=== PATIENT | male | born 1960 | race Caucasian/White ===

== ENCOUNTER 2022-01-28 04:04 | Emergency (ER) | payer OTHER ==
--- OUTSIDE RECORDS SUMMARY | 2022-01-28 04:08 | XMS REPORT | Continuity of Care Document ---
:1960 Author Organization [facility] t Address [address] [place] [address] Care Team Providers Name Role Phone Emanuel Jiménez MD Primary Care Physician Devan HERNANDEZ Attending Clinician DEVAN Attending Clinician Unavailable Mynor Olsen DO Attending Clinician Doctor Unassigned, Name Attending Clinician Unavailable Candi LEWIS Attending Clinician Unavailable Skyler ZELAYA Attending Clinician Matt WALKER Attending Clinician Unavailable Lab, Fam Pob I Attending Clinician Unavailable SKYLER Attending Clinician Unavailable Candi Lewis Attending Clinician Payers Payer Name Policy Type Policy Number Effective Date Expiration Date S ource Problems Condition Condition Condition Status Onset Resolution Last Treating Co mments Source Name Details Category Date Date Treatment Clinician Date No known No known Disease Unive rs active active ity of problems problems [facility] [place] Allergies, Adverse Reactions, Alerts Allergy Allergy Status Severity Reaction(s) Onset Inactive Treating Comm ents Source Name Type Date Date Clinician Erythrom Propensi Active Rash 2018-0 Univer s ycin ty to 3-15 ity of adverse 00:00: [place] reaction [facility] s Branch ERYTHROM DRUG Active Rash 2019-0 Univers YCIN 3-15 ity of 00:00: [place] [address] Medical Branch Social History Social Habit Start Date Stop Date Quantity Comments Source History SDOH University o f Alcohol Frequency [place] [facility] History SDOH University o f Alcohol Std [place] [facility] Drinks [facility] History SDOH University o f Alcohol Binge [place] [facility] Exposure to Not sure University of SARS-CoV-2 [place] [facility] (event) [facility] Alcohol intake 2020-11-26 2020-11-26 Current drinker Unive rsity of 00:00:00 00:00:00 of alcohol [place] [facility] (finding[facility] Tobacco Comment 2018-11-12 2018-11-12 x 52y Universit y of 00:00:00 00:00:00 [facility] Alcohol Comment 2018-11-12 2018-11-12 occasional Universit y of 00:00:00 00:00:00 [facility] Tobacco use and 2018-11-12 2018-11-12 Current user Univers ity of exposure 00:00:00 00:00:00 [facility] History of 1986-11-12 Snuff User University of tobacco use 00:00:00 [facility] Sex Ass[birth year] At [birth year] Universit y of 00:00:00 00:00:00 [facility] Smoking Status Start Date Stop Date Source Former smoker 2018-11-12 00:00:00 2018-11-12 00:00:00 Universi ty of [facility] Medications Ordered Filled Start Stop Current Ordering Indication Dosage Frequency Signature Comments Components Source Medication Medication Date Date Medication? Clinician (SIG) Name Name ROSUVASTATI 2020-08 Yes [id number] 10mg TAKE 1 Univers N 10 mg 0-11 TABLET BY ity of tablet 00:00: MOUTH AT [place] 00 BEDTIME Medical Branch LISINOPRIL 2020-08 Yes [id number] 5mg TAKE 1 U nivers 5 mg tablet 0-11 TABLET BY ity of 00:00: MOUTH [place] 00 DAILY Medical Branch rosuvastati Yes [id number] 10mg Take 1 Univers n 10 mg 4-16 tablet by ity of tablet 00:00: mouth at [place] 00 bedtime. Medical Branch lisinopriL Yes [id number] 5mg Take 1 U nivers 5 mg tablet 4-16 tablet by ity of 00:00: mouth [place] 00 daily. Medical Branch rosuvastati 2020- No [id number] 10mg Take 1 Univers n 10 mg 4-16 10-11 tablet by ity of tablet 00:00: 00:00 mouth at [place] 00 :00 bedtime. Medical Branch lisinopriL 2020- No [id number] 5mg Take 1 Univers 5 mg tablet 4-16 10-11 tablet by it y of 00:00: 00:00 mouth [place] 00 :00 daily. Medical Branch dulaglutide Yes [id number] 1.5mg inject 1.5 Univers (TRULICITY) 3-29 mg under ity of 1.5 mg/0.5 00:00: the skin Anirudh as mL PnIj 00 weekly. Medical Branch metFORMIN Yes [id number] TK 1 T PO Univers 500 mg 3-29 QAM AND 2 ity of tablet 00:00: TS IN THE [place] 00 EVENING. Medical Branch dulaglutide Yes [id number] 1.5mg inject 1.5 Univers (TRULICITY) 3-29 mg under ity of 1.5 mg/0.5 00:00: the skin Anirudh as mL PnIj 00 weekly. Medical Branch metFORMIN Yes [id number] TK 1 T PO Univers 500 mg 3-29 QAM AND 2 ity of tablet 00:00: TS IN THE [place] 00 EVENING. Medical Branch dulaglutide Yes [id number] 1.5mg inject 1.5 Univers (TRULICITY) 3-29 mg under ity of 1.5 mg/0.5 00:00: the skin Anirudh as mL PnIj 00 weekly. Medical Branch metFORMIN Yes [id number] TK 1 T PO Univers 500 mg 3-29 QAM AND 2 ity of tablet 00:00: TS IN THE [place] 00 EVENING. Medical Branch dulaglutide Yes [id number] 1.5mg inject 1.5 Univers (TRULICITY) 3-29 mg under ity of 1.5 mg/0.5 00:00: the skin Anirudh as mL PnIj 00 weekly. Medical Branch metFORMIN Yes [id number] TK 1 T PO Univers 500 mg 3-29 QAM AND 2 ity of tablet 00:00: TS IN THE [place] 00 EVENING. Medical Branch dulaglutide Yes [id number] 1.5mg inject 1.5 Univers (TRULICITY) 3-29 mg under ity of 1.5 mg/0.5 00:00: the skin Anirudh as mL PnIj 00 weekly. Medical Branch metFORMIN Yes [id number] TK 1 T PO Univers 500 mg 3-29 QAM AND 2 ity of tablet 00:00: TS IN THE [place] 00 EVENING. Medical Branch dulaglutide 2020-0 Yes [id number] .75mg inject Univers (TRULICITY) 9-21 0.75 mg ity o f 0.75 mg/0.5 00:00: under the [place] mL PnIj 00 skin Medical weekly. Branch metFORMIN 2020-0 Yes [id number] TK 1 T PO Univers 500 mg 9-21 QAM AND 2 ity of tablet 00:00: TS IN THE [place] 00 EVENING. Medical Branch dulaglutide 0 Yes [id number] .75mg inject Univers (TRULICITY) 9-21 0.75 mg ity o f 0.75 mg/0.5 00:00: under the [place] mL PnIj 00 skin Medical weekly. Branch metFORMIN Yes [id number] TK 1 T PO Univers 500 mg 9-21 QAM AND 2 ity of tablet 00:00: TS IN THE [place] 00 EVENING. Medical Branch dulaglutide Yes [id number] .75mg inject Univers (TRULICITY) 9-21 0.75 mg ity o f 0.75 mg/0.5 00:00: under the [place] mL PnIj 00 skin Medical weekly. Branch metFORMIN Yes [id number] TK 1 T PO Univers 500 mg 9-21 QAM AND 2 ity of tablet 00:00: TS IN THE [place] 00 EVENING. Medical Branch dulaglutide 2020- No [id number] .75mg inject Univers (TRULICITY) 05-21- 0.75 mg ity of 0.75 mg/0.5 00:00: 00:00 under the [place] mL PnIj 00 :00 skin Medical weekly. Branch metFORMIN 2020- No [id number] TK 1 T PO Univers 500 mg -18 11-29 QAM AND 2 ity of tablet 00:00: 00:00 TS IN THE [place] 00 :00 EVENING. Medical Branch dulaglutide 2020- No [id number] .75mg inject Univers (TRULICITY) -18 11-29 0.75 mg ity of 0.75 mg/0.5 00:00: 00:00 under the [place] mL PnIj 00 :00 skin Medical weekly. Branch metFORMIN 2020- No [id number] TK 1 T PO Univers 500 mg 05-21 QAM AND 2 ity of tablet 00:00: 00:00 TS IN THE [place] 00 :00 EVENING. Medical Branch thiamine 2020-0 Yes Take by Unive rs HCl 2-17 mouth. ity of (VITAMIN 15:35: [place] B-1 ORAL) 40 Medical Branch thiamine 2020-0 Yes Take by Unive rs HCl 2-17 mouth. ity of (VITAMIN 15:35: [place] B-1 ORAL) 40 Medical Branch thiamine 2020-0 Yes Take by Unive rs HCl 2-17 mouth. ity of (VITAMIN 15:35: [place] B-1 ORAL) 40 Medical Branch thiamine 2020-0 Yes Take by Unive rs HCl 2-17 mouth. ity of (VITAMIN 15:35: [place] B-1 ORAL) 40 Medical Branch thiamine 2020-0 Yes Take by Unive rs HCl 2-17 mouth. ity of (VITAMIN 15:35: [place] B-1 ORAL) 40 Medical Branch thiamine 2020-0 Yes Take by Unive rs HCl 2-17 mouth. ity of (VITAMIN 15:35: [place] B-1 ORAL) 40 Medical Branch thiamine 2020-0 Yes Take by Unive rs HCl 2-17 mouth. ity of (VITAMIN 15:35: [place] B-1 ORAL) 40 Medical Branch thiamine 2020-0 Yes Take by Unive rs HCl 2-17 mouth. ity of (VITAMIN 15:35: [place] B-1 ORAL) 40 Medical Branch thiamine 2020-0 Yes Take by Unive rs HCl 2-17 mouth. ity of (VITAMIN 15:35: [place] B-1 ORAL) 40 Medical Branch thiamine 2020-0 Yes Take by Unive rs HCl 2-17 mouth. ity of (VITAMIN 15:35: [place] B-1 ORAL) 40 Medical Branch thiamine 2020-0 Yes Take by Unive rs HCl 2-17 mouth. ity of (VITAMIN 15:35: [place] B-1 ORAL) 40 Medical Branch thiamine 2020-0 Yes Take by Unive rs HCl 2-17 mouth. ity of (VITAMIN 15:35: [place] B-1 ORAL) 40 Medical Branch thiamine 2020-0 Yes Take by Unive rs HCl 2-17 mouth. ity of (VITAMIN 15:35: [place] B-1 ORAL) 40 Medical Branch thiamine 2020-0 Yes Take by Unive rs HCl 2-17 mouth. ity of (VITAMIN 09:35: [place] B-1 ORAL) 40 Medical Branch metFORMIN 2020-0 Yes [id number] TK 1 T PO Univers 500 mg 2-17 QAM AND 2 ity of tablet 00:00: TS IN THE [place] 00 EVENING. Medical Branch dulaglutide 2020-0 Yes [id number] .75mg inject Univers (TRULICITY) 2-17 0.75 mg ity o f 0.75 mg/0.5 00:00: under the [place] mL PnIj 00 skin Medical weekly. Branch metFORMIN 2020-0 Yes [id number] TK 1 T PO Univers 500 mg 2-17 QAM AND 2 ity of tablet 00:00: TS IN THE [place] EVENING. Medical Branch dulaglutide 2020-0 Yes [id number] .75mg inject Univers (TRULICITY) 2-17 0.75 mg ity o f 0.75 mg/0.5 00:00: under the [place] mL PnIj 00 skin Medical weekly. Branch metFORMIN 2020-0 Yes [id number] TK 1 T PO Univers 500 mg 2-17 QAM AND 2 ity of tablet 00:00: TS IN THE [place] EVENING. Medical Branch dulaglutide 2020-0 Yes [id number] .75mg inject Univers (TRULICITY) 2-17 0.75 mg ity o f 0.75 mg/0.5 00:00: under the [place] mL PnIj skin Medical weekly. Branch metFORMIN 2020-0 Yes [id number] TK 1 T PO Univers 500 mg 2-17 QAM AND 2 ity of tablet 00:00: TS IN THE [place] EVENING. Medical Branch dulaglutide 2020-0 Yes [id number] .75mg inject Univers (TRULICITY) 2-17 0.75 mg ity o f 0.75 mg/0.5 00:00: under the [place] mL PnIj 00 skin Medical weekly. Branch metFORMIN 2020-0 Yes [id number] TK 1 T PO Univers 500 mg 2-17 QAM AND 2 ity of tablet 00:00: TS IN THE [place] EVENING. Medical Branch dulaglutide 2020-0 Yes [id number] .75mg inject Univers (TRULICITY) 2-17 0.75 mg ity o f 0.75 mg/0.5 00:00: under the [place] mL PnIj 00 skin Medical weekly. Branch metFORMIN 2019- Yes [id number] TK 1 T PO Univers 500 mg 2-17 QAM AND 2 ity of tablet 00:00: TS IN THE [place] 00 EVENING. Medical Branch dulaglutide 2019- Yes [id number] .75mg inject Univers (TRULICITY) 2-17 0.75 mg ity o f 0.75 mg/0.5 00:00: under the [facility] mL PnIj 00 skin Medical weekly. Branch metFORMIN 2020- No [id number] TK 1 T PO Univers 500 mg 2-17 -21 QAM AND 2 ity of tablet 00:00: 00:00 TS IN THE [place] 00 :00 EVENING. Medical Branch dulaglutide 2020- No [id number] .75mg inject Univers (TRULICITY) 2-17 - 0.75 mg ity of 0.75 mg/0.5 00:00: 00:00 under the [facility] PnIj 00 :00 skin Medical weekly. Branch metFORMIN 2020- No [id number] TK 1 T PO Univers 500 mg 2-17 - QAM AND 2 ity of tablet 00:00: 00:00 TS IN THE [place] 00 :00 EVENING. Medical Branch dulaglutide 2020- No [id number] .75mg inject Univers (TRULICITY) 2-17 - 0.75 mg ity of 0.75 mg/0.5 00:00: 00:00 under the [facility] PnIj 00 :00 skin Medical weekly. Branch ergocalcife 2018- Yes [id number] Take [facility] ers rol, - 50,000 ity of vitamin d2, 18:39: Units by [place] 50,000 unit 09 mouth Medical capsule weekly. Branch Cholecalcif Yes Take by Un kristi andres, 6-21 mouth ity of Vitamin D3, 18:39: [place] (VIT[place]IN 09 Medical D3) 5,000 Branch unit tablet ergocalcife 2019- Yes [id number] Take Univ ers rol, 6- 50,000 ity of vitamin d2, 18:39: Units [place] 50,000 unit 09 mouth Medical capsule weekly. Branch Cholecalcif 2018- Yes Take by Un kristi andres, 6-21 mouth ity of Vitamin D3, 18:39: daily. [place] (VITAMIN 09 Medical D3) 5,000 Branch unit tablet ergocalcife 2019-0 Yes [id number] Take Univ ers rol, 6-21 50,000 ity of vitamin d2, 18:39: Units [place] 50,000 unit 09 mouth Medical capsule weekly. Branch Cholecalcif 2018-0 Yes Take by Un kristi andres, 6-21 mouth ity of Vitamin D3, 18:39: daily. [place] (VITAMIN 09 Medical D3) 5,000 Branch unit tablet ergocalcife 2019-0 Yes [id number] Take Univ ers rol, 6-21 50,000 ity of vitamin d2, 18:39: Units by [place] 50,000 unit 09 mouth Medical capsule weekly. Branch Cholecalcif 2018-0 Yes Take by Un kristi andres, 6-21 mouth ity of Vitamin D3, 18:39: daily. [place] (VITAMIN 09 Medical D3) 5,000 Branch unit tablet ergocalcife 2019-0 Yes [id number] Take Univ ers rol, 6- 50,000 ity of vitamin d2, 18:39: Units by [place] 50,000 unit 09 mouth Medical capsule weekly. Branch Cholecalcif 2018-0 Yes Take by Un kristi andres, 6-21 mouth ity of Vitamin D3, 18:39: daily. [place] (VITAMIN 09 Medical D3) 5,000 Branch unit tablet ergocalcife 2019-0 Yes [id number] Take Univ ers rol, 6- 50,000 ity of vitamin d2, 18:39: Units by [place] 50,000 unit 09 mouth Medical capsule weekly. Branch Cholecalcif 2019-0 Yes Take by Un kristi andres, 6-21 mouth ity of Vitamin D3, 18:39: daily. [place] (VITAMIN 09 Medical D3) 5,000 Branch unit tablet ergocalcife 2019-0 Yes [id number] Take Univ ers rol, 6-21 50,000 ity of vitamin d2, 18:39: Units by [place] 50,000 unit 09 mouth Medical capsule weekly. Branch Cholecalcif 2019-0 Yes Take by Un kristi andres, 6-21 mouth ity of Vitamin D3, 18:39: daily. [place] (VITAMIN 09 Medical D3) 5,000 Branch unit tablet ergocalcife 2019-0 Yes [id number] Take Univ ers rol, 6- 50,000 ity of vitamin d2, 18:39: Units by [place] 50,000 unit 09 mouth Medical capsule weekly. Branch Cholecalcif 2018-0 Yes Take by Un kristi andres, 6-21 mouth ity of Vitamin D3, 18:39: daily. [place] (VITAMIN 09 Medical D3) 5,000 Branch unit tablet ergocalcife 2019-0 Yes [id number] Take [facility] ers rol, 6- 50,000 ity of vitamin d2, 18:39: Units by [place] 50,000 unit 09 mouth Medical capsule weekly. Branch Cholecalcif 0 Yes Take by Un kristi andres, 6-21 mouth ity of Vitamin D3, 18:39: daily. [place] (VITAMIN 09 Medical D3) 5,000 Branch unit tablet ergocalcife 2019-0 Yes [id number] Take [facility] ers rol, 6- 50,000 ity of vitamin d2, 18:39: Units by [place] 50,000 unit 09 mouth Medical capsule weekly. Branch Cholecalcif 0 Yes Take by Un kristi andres, 6-21 mouth ity of Vitamin D3, 18:39: daily. [place] (VITAMIN 09 Medical D3) 5,000 Branch unit tablet ergocalcife 2019-0 Yes [id number] Take [facility] ers rol, 6- 50,000 ity of vitamin d2, 18:39: Units by [place] 50,000 unit 09 mouth Medical capsule weekly. Branch Cholecalcif 0 Yes Take by Un kristi andres, 6-21 mouth ity of Vitamin D3, 18:39: daily. [place] (VITAMIN 09 Medical D3) 5,000 Branch unit tablet ergocalcife 2019-0 Yes [id number] Take [facility] ers rol, 6- 50,000 ity of vitamin d2, 18:39: Units by [place] 50,000 unit 09 mouth Medical capsule weekly. Branch Cholecalcif 2019-0 Yes Take by Un kristi andres, 6-21 mouth ity of Vitamin D3, 18:39: daily. [place] (VITAMIN 09 Medical D3) 5,000 Branch unit tablet ergocalcife 2019-0 Yes [id number] Take [facility] ers rol, 6- 50,000 ity of vitamin d2, 18:39: Units by [place] 50,000 unit 09 mouth Medical capsule weekly. Branch Cholecalcif Yes Take by Un kristi andres, 6-21 mouth ity of Vitamin D3, 18:39: daily. [place] (VITAMIN 09 Medical D3) 5,000 Branch unit tablet ergocalcife Yes [id number] Take Univ ers rol, 6- 50,000 ity of vitamin d2, 18:39: Units by [place] 50,000 unit 09 mouth Medical capsule weekly. Branch Cholecalcif Yes Take by Un kristi andres, 6-21 mouth ity of Vitamin D3, 18:39: daily. [place] (VITAMIN 09 Medical D3) 5,000 Branch unit tablet ergocalcife Yes [id number] Take Univ ers rol, 6- 50,000 ity of vitamin d2, 13:39: Units by [place] 50,000 unit 09 mouth Medical capsule weekly. Branch Cholecalcif Yes Take by Un kristi andres, 6-21 mouth ity of Vitamin D3, 13:39: daily. [place] (VITAMIN 09 Medical D3) 5,000 Branch unit tablet dulaglutide Yes [id number] .75mg inject Univers (TRULICITY) 6-21 0.75 mg ity o f 0.75 mg/0.5 00:00: under the [facility] mL PnIj 00 skin Medical weekly. Branch metFORMIN Yes [id number] TK 1 T PO Univers 500 mg 6-21 QAM AND 2 ity of tablet 00:00: TS IN THE [place] 00 EVENING. Medical Branch dulaglutide 2020- No [id number] .75mg inject Univers (TRULICITY) 6-21 10-17 0.75 mg ity of 0.75 mg/0.5 00:00: 00:00 under the [place] mL PnIj 00 :00 skin Medical weekly. Branch metFORMIN 2020- No [id number] TK 1 T PO Univers 500 mg 6-21 02-17 QAM AND 2 ity of tablet 00:00: 00:00 TS IN THE [place] 00 :00 EVENING. Medical Branch dulaglutide 2020- No [id number] .75mg inject Univers (TRULICITY) 6-21 10-17 0.75 mg ity of 0.75 mg/0.5 00:00: 00:00 under the [place] mL PnIj 00 :00 skin Medical weekly. Branch metFORMIN 2019-0 2020- No [id number] TK 1 T PO Univers 500 mg 02-18 QAM AND 2 ity of tablet 00:00: 00:00 TS IN THE [place] 00 :00 EVENING. Medical Branch Vital Signs Vital Name Observation Time Observation Value Comments Source Systolic blood 2020-11-26 19:16:00 146 mm[Hg] Univer sity of pressure [facility] Diastolic blood 2020-11-26 19:16:00 88 mm[Hg] Unive rsity of [facility] Heart rate 2020-11-26 19:11:00 73 /min Universi ty of [facility] Respiratory rate 2020-11-26 19:11:00 21 /min Univ ersity of [facility] Body height 2020-11-26 19:11:00 188 cm Universi ty of [facility] Body weight 2020-11-26 19:11:00 174.363 kg Universi ty of [facility] BMI 2020-11-26 19:11:00 49.35 kg/m2 Universi ty of [facility] Body weight 2020-05-21 19:15:00 169.645 kg Universi ty of [facility] BMI 2020-05-21 19:15:00 48.02 kg/m2 Universi ty of [facility] Oxygen saturation in 2020-05-21 19:15:00 97 /min University Arterial blood by [facility] Pulse oximetry Branch Systolic blood 2020-05-21 19:15:00 125 mm[Hg] Univer sity of [facility] Diastolic blood 2020-05-21 19:15:00 76 mm[Hg] Unive rsity of pressure [facility] Heart rate 2020-05-21 19:15:00 78 /min Universi ty of [facility] Body height 2020-05-21 19:15:00 188 cm Universi ty of [facility] Systolic blood 2019-10-17 15:33:00 127 mm[Hg] Univer sity of pressure [facility] Diastolic blood 2019-10-17 15:33:00 81 mm[Hg] Unive rsity of pressure [facility] Heart rate 2019-10-17 15:33:00 71 /min Universi ty of [facility] Respiratory rate 2019-10-17 15:33:00 18 /min [facility] Body height 2019-10-17 15:33:00 185.4 cm [facility] Body weight 2019-10-17 15:33:00 173.365 kg [facility] BMI 2019-10-17 15:33:00 50.43 kg/m2 [facility] Procedures Procedure Date / Time Performed Performing Clinician Sour e HEMOGLOBIN A1C-Q 2020-12-04 14:37:00 Jolene Garcia [facility] ASSIGNMENT OF BENEFITS 2020-05-21 19:04:04 Doctor Unassigned, No [facility] POCT HEMOGLOBIN A1C 2020-05-21 00:00:00 Jolene Garcia [facility] POCT HEMOGLOBIN A1C 2019-10-17 00:00:00 Jolene Garcia [facility] Encounters Start End Encounter Admission Attending Care Care Encounter Source Date/Time Date/Time Type Type Clinicians Facility Department ID 2021-06-10 2021-06-10 Refill Devan [facility] [id number] Univers 00:00:00 00:00:00 Jolene Gomez [id number] i ty [facility] [id number] [phone] [address] 2021-04-15 2021-04-15 Outpatient R DEVAN [facility] [id number] Univers 15:00:00 15:00:00 JOLENE [id number] [facility] 2020-12-14 2020-12-14 Patient Devan [facility] [id number] Univers 00:00:00 00:00:00 Secure Msg Jolene Gomez [id number] ity [facility] [id number] [phone] [address] 2020-12-04 2020-12-04 Orders YASMINE Garcia [id number] Univers 00:00:00 00:00:00 Only Jolene FERRER [id number] it y of [facility] [phone] [facility] [address] [place] 2020-11-26 2020-11-[address] [facility] [id number] Univers 14:09:52 14:43:44 Visit Jolene Gomez [id number] i ty of [place] [id number] [phone] [facility] [address] [facility] 2020-11-26 2020-11-26 [id number] Univers 14:00:00 14:00:00 JOLENE [id number] [facility] 2020-11-26 2020-11-26 [facility] [id number] Univers 14:00:00 14:00:[facility] 2020-11-07 2020-11-07 Patient Raúl [facility] [id number] Univers 00:00:00 00:00:00 Outreach Terrance PRIMARY [id number] i ty of [facility] [id number] [phone] [address] 2020-05-21 2020-05-[address] [facility] [id number] Univers 14:01:32 14:31:32 Visit Jolene Gomez [id number] i ty [place] [id number] [phone] [facility] [address] [facility] 2020-05-21 2020-05-21 Outpatient R DEVAN [facility] [id number] Univers 14:00:00 14:00:00 JOLENE [id number] [facility] 2020-05-21 2020-05-21 [facility] [id number] Univers 14:00:00 14:00:00 JOLENE [facility] 2020-05-21 2020-05-21 Orders Doctor [place] [id number] Univers 00:00:00 00:00:00 Only Unassigned, NABIL [id number] ity of [place] [facility] [phone] [facility] [address] [place] 2020-04-20 2020-04-20 [facility] [id number] Univers 09:30:00 09:30:00 SANTINO [id number] ity of [facility] 2020-04-20 2020-04-20 Outpatient R LEWIS [facility] [id number] Univers 09:30:00 09:30:00 SANTINO ity of [facility] 2020-03-12 2020-03-12 Outpatient R [facility] [id number] Univers 07:40:00 07:40:00 [id number] ity of [facility] 2020-03-12 2020-03-12 Outpatient R [facility] [id number] Univers 07:40:00 07:40:00 ity of [facility] 2020-03-12 2020-03-12 Telephone Skyler [facility] [id number] Univers 00:00:00 00:00:00 Elana Gomez [id number] i ty [place] [id number] [phone] [address] 2020-03-11 2020-03-11 Telephone YASMINE Gutierrez [id number] Univers 00:00:00 00:00:00 Rose Mary FERRER [id number] it y of HOSPITAL [phone] [facility] [address] [place] 2020-03-10 2020-03-10 Laboratory Lab, Adc Fam Pob I [facility] [id number]. [id number] Univers 15:27:36 15:47:36 Only Elana Holland [id number] ity of [place] [id number] Anirudh as Professio [phone] [address] Office [address] 2020-03-10 2020-03-10 Outpatient R [facility] [id number] Univers 15:40:00 15:40:00 [id number] [facility] 2020-03-10 2020-03-10 Outpatient R DOMINIKEsau [facility] [id number] [facility] 15:40:00 15:40:00 ELANA [facility] 2019-10-17 2019-10-17 Office Devan [facility] [id number] 09:21:51 10:35:42 Visit Jolene Gomez [id number] i ty [place] [id number] [phone] Pr dical nal [address] [facility] 2019-04-27 2019-04-27 Telephone Anna [facility] [id number] [facility] [facility] 00:00:00 00:00:00 Santino Gomez [id number] i [id number] [phone] Pr dical nal [address] [facility] Results Test Description Test Time Test Comments Results Result Comments Source HEMOGLOBIN A1C-Q 2020-12-05 01:00:00 Test Item Value Reference Range Interpretation Comme nts HEMOGLOBIN A1c-Q (test See_Comment H For brandie lepe without known code = 4548-4) diabetes, a h emoglobin A1c value between 5 .7% and 6.4% is consistent withprediabetes and should be confirmed wi th a follow-up test. For someone with known diab etes, a value <7%indicates that their diabetes is wel l controlled. M0leelmfyt shou ld be individualized based on duration ofdiab etes, age, comorbid condit ions, and otherconsiderat ions. This assay result is consistent with an increas ed riskof diabetes. Curre ntly, no consensus exist s regarding use ofhemoglobi n A1c for diagnosis of di abetes for children. REPOR T COMMENT:FASTING :YES [Automated mess age] The system which ge nerated this result transmit pierce reference range: <5.7 % o f total Hgb. The reference r eddie was not used to interpr et this result as joce l/abnormal. KENNA (test code = KENNA) PERFORMED BY [facility]; [address] [place] [address], [place] [address]; MERCEDES ISRAEL MD Lab Interpretation Abnormal (test code = 02665-6) [facility] HEMOGLOBIN A1C [id number] 19:19:00 Test Item Value Reference Range Interpretation Comments POCT HBA1C (test code = 4548-4) 6.2 % 4-6 A Lab Interpretation (test code = Abnormal 84378-7) [facility] HEMOGLOBIN A1C [id number] 19:19:00 Test Item Value Reference Range Interpretation Comments POCT HBA1C (test code = 4548-4) 6.2 % 4-6 A Lab Interpretation (test code = Abnormal 69316-4) [facility] HEMOGLOBIN A1C [id number] 15:36:00 Test Item Value Reference Range Interpretation Comments POCT HBA1C (test code = 4548-4) 5.9 % 4-6 [facility] HEMOGLOBIN A1C [id number] 15:36:00 Test Item Value Reference Range Interpretation Comments POCT HBA1C (test code = 4548-4) 5.9 % 4-6 [facility]
[2022-01-28 05:02] LABS: Urine Blood 3+ (Negative); Urine Glucose Negative (Negative); Urine Protein 3+ (Negative); Urine Specific Gravity >=1.030 (1.005-1.030)
[2022-01-28] MEDS ORDERED: NA CHLORIDE 0.9% 1,000 ML ONE (06:58)
[2022-01-28] MEDS ORDERED: MORPHINE 4 MG/ML SYR ONE (06:58)
[2022-01-28] MEDS ORDERED: ONDANSETRON 4 MG/2 ML VIAL ONE (06:58)
--- NOTE | 2022-01-28 07:46 | RAD REPORT ---
EXAM DESCRIPTION: CTStone Protocol - 01/28/2022 7:05 am CLINICAL HISTORY: Flank pain, kidney stone suspected COMPARISON: Stone Protocol dated 05/07/2016 TECHNIQUE: CT of the abdomen and pelvis was performed. All CT scans are performed using dose optimization technique as appropriate and may include automated exposure control or mA/KV adjustment according to patient size. FINDINGS: Lower chest: 8 mm subpleural nodule in the right lower lobe. This is new since 05/07/2016. It may represent a subpleural lymph node. Liver: Hepatic steatosis low-density lesion left hepatic lobe are similar to 05/07/2016. Biliary: No biliary ductal dilatation. Stomach: No significant focal abnormality. Duodenum: No significant focal abnormality. Pancreas: No significant abnormality. Spleen: No significant abnormality. Adrenal: No suspicious lesions. Kidney/ureter: Mild left-sided hydronephrosis. 3 mm stone in the left distal ureter. This is proximal to the UVJ. Retroperitoneum: No retroperitoneal adenopathy. Vascular: No aneurysm. Bowel: No significant focal abnormality. Peritoneum: No ascites or free air. Bladder: Grossly unremarkable. Reproductive: No adnexal masses. Bones: No acute fracture. Other: n/a IMPRESSION: Mild left-sided hydronephrosis secondary to a 3 mm stone in the distal left ureter. New 8 mm right lower lobe pulmonary nodule. Recommend three-month follow-up chest CT.
[2022-01-28 09:20] LABS: Absolute Lymphocytes (CBC) 1.3 K/uL (0.7-4.9); Hematocrit 43.5 % (39.6-49.0); Lymphocytes % 11.4 % (15.3-44.8); MPV 8.2 fL (7.6-11.3); RBC Red Blood Cell Count 5.31 M/uL (4.33-5.43)
[2022-01-28 09:33] LABS: Albumin 3.5 g/dL (3.4-5.0); Bilirubin Total 0.3 mg/dL (0.2-1.0); Potassium 4.4 mmol/L (3.5-5.1); Protein, Total 7.2 g/dL (6.4-8.2)
[2022-01-28] MEDS ORDERED: KETOROLAC 30 MG/ML INJ ONE (09:50)
[2022-01-28] MEDS ORDERED: TAMSULOSIN 0.4 MG SR CAP ONE (09:50)
--- NOTE | 2022-01-28 09:54 | ER ---
Nurse's Notes [facility] Name: Kd Jang III Age: 61 yrs Sex: Male : 1960 Arrival Date: 01/28/2022 Time: 04:06 Bed 6 Private MD: Diagnosis: Kidney stone;Unspecified hydronephrosis;Solitary pulmonary nodule Presentation: 01/28 04:41 Chief complaint: Patient states: Hematuria reported yesterday morning, reports severe lp1 left flank pain that began about 0000, hx of kidney stones with similar symptoms, reported nausea. Coronavirus screen: At this time, the client does not indicate any symptoms associated with coronavirus-19. Ebola Screen: No symptoms or risks identified at this time. Initial Sepsis Screen: Does the patient meet any 2 criteria? No. Patient's initial sepsis screen is negative. Does the patient have a suspected source of infection? No. Patient's initial sepsis screen is negative. Risk Assessment: Do you want to hurt yourself or someone else? Patient reports no desire to harm self or others. Onset of symptoms was January 28, 2022. 04:41 Method Of Arrival: Ambulatory lp1 04:41 Acuity: AUNDREA 3 lp1 Historical: - Allergies: 04:44 Erythromycin; lp1 - Home Meds: 04:44 metformin 1,000 mg Oral tab 1 tab 2 times per day [Active]; meloxicam oral [Active]; lp1 - PMHx: 04:44 HEART MUMUR; Kidney stones; lp1 - PSHx: 04:44 Appendectomy; R knee surgery; Tonsillectomy; lp1 - Immunization history:: Adult Immunizations up to date. - Social history:: Smoking status: Patient reports use of chewing tobacco. Screenin:50 Abuse screen: Denies threats or abuse. Denies injuries from another. Nutritional sm5 screening: No deficits noted. Tuberculosis screening: No symptoms or risk factors identified. Fall Risk None identified. Assessment: 04:45 General: Appears in no apparent distress. Behavior is cooperative. Pain: Complains of sm5 pain in back. Neuro: No deficits noted. Wilson Agitation-Sedation Scale (RASS): 0 - Alert and Calm Level of Consciousness is awake, alert, obeys commands, Oriented to person, place, time, situation. Cardiovascular: No deficits noted. Capillary refill < 3 seconds Patient's skin is warm and dry. Respiratory: No deficits noted. Airway is patent Trachea midline Respiratory effort is even, unlabored. GI: Abdomen is round obese, Bowel sounds present X 4 quads. Abd is soft. 07:15 General: Appears in no apparent distress. comfortable, Behavior is calm, cooperative. jh6 Pain: Complains of pain in left mid back Pain radiates to anterior aspect of right lateral abdomen Pain currently is 5 out of 10 on a pain scale. Quality of pain is described as sharp, shooting, Is continuous. 07:15 : Reports pain. jh6 Vital Signs: 04:41 BP 169 / 94; Pulse 80; Resp 18; Temp 98.8(O); Pulse Ox 97% on R/A; Weight 176.9 kg (R); lp1 Height 6 ft. 2 in. (187.96 cm); Pain 8/10; 05:15 BP 165 / 87; Pulse 72; Resp 17; Pulse Ox 96% on R/A; sm5 06:15 BP 167 / 105; Pulse 70; Resp 18; Pulse Ox 97% on R/A; sm5 07:15 BP 166 / 93; Pulse 69; Pulse Ox 96% on R/A; ap3 08:25 BP 144 / 92; Pulse 63; Pulse Ox 98% on R/A; ap3 04:41 Body Mass Index 50.07 (176.90 kg, 187.96 cm) lp1 ED Course: 04:06 Patient arrived in ED. ja2 04:40 Karen Reis, AARON is Primary Nurse. sm5 04:44 Triage completed. lp1 04:50 Inserted saline lock: 20 gauge in right hand, using aseptic technique. sm5 06:46 Mando Mensah MD is Attending Physician. mh7 06:49 Lipase Sent. sm5 06:49 CMP Sent. sm5 06:49 CBC with Diff Sent. sm5 06:50 Patient has correct armband on for positive identification. Bed in low position. Call sm5 light in reach. Side rails up X2. 07:07 CT Stone Protocol In Process Unspecified. EDMS 07:14 Attending Physician role handed off by Mando Mensah MD ms3 07:14 Asaf Cheek DO is Attending Physician. ms3 09:53 Josh Lobo MD is Referral Physician. ms3 09:59 No provider procedures requiring assistance completed. ap3 09:59 Arm band placed on right wrist. ap3 10:00 IV discontinued, intact, bleeding controlled, No redness/swelling at site. Pressure jh6 dressing applied. Administered Medications: 06:57 Drug: Zofran (Ondansetron) 4 mg Route: IVP; Site: right hand; ke1 10:00 Follow up: Response: No adverse reaction ap3 06:58 Drug: morphine 4 mg Route: IVP; Infused Over: 4 mins; Site: right hand; ke1 09:59 Follow up: Response: No adverse reaction ap3 06:59 Drug: NS 0.9% 1000 ml Route: IV; Rate: 1000 ml; Site: right hand; ke1 09:48 Drug: Tamsulosin Extended Release 24 hour Capsule 0.4 mg Route: PO; jh6 10:00 Follow up: Response: No adverse reaction ap3 10:01 Follow up: Response: No adverse reaction jh6 09:49 Drug: Ketorolac 15 mg Route: IVP; Site: right antecubital; jh6 10:00 Follow up: Response: No adverse reaction ap3 10:01 Follow up: Response: Pain is decreased jh6 Medication: 04:45 VIS not applicable for this client. lp1 Outcome: 09:53 Discharge ordered by . ms3 10:00 Discharged to home ambulatory. jh6 10:00 Condition: good 10:00 Discharge instructions given to patient, family, Instructed on discharge instructions, Demonstrated understanding of instructions, follow-up care, medications, Prescriptions given X 2. 10:11 Patient left the ED. 5 Signatures: Dispatcher [employer] EDMS Carie Lott RN RN 1 Isabel Dobbins 5 Patrica Lewis RN RN ap3 Asaf Cheek DO DO ms3 Mando Mensah MD MD 7 Camille Martinez Jennifer, RN RN 6 Karen Reis RN RN sm5 Kenneth Ny RN RN ke1 Corrections: (The following items were deleted from the chart) 04:45 04:44 Allergies: arithromycin; lp1 lp1 10:00 09:49 BP 102 / 73 Supine; Pulse 83bpm; Resp 18bpm; Pulse Ox 100%; Pain 0/10; jh6 jh6 10:00 09:49 BP 105 / 56 Sitting; Pulse 90bpm; Resp 17bpm; Pulse Ox 100%; Pain 0/10; jh6 jh6 10:00 09:49 BP 107 / 64 Standing; Pulse 94bpm; Resp 17bpm; jh6 jh6
--- NOTE | 2022-01-28 09:54 | EDPHYS ---
Physician Documentation [facility] Name: Kd Jang III Age: 61 yrs Sex: Male : 1960 Arrival Date: 01/28/2022 Time: 04:06 Bed 6 Private MD: ED Physician Asaf Cheek HPI: 01/28 08:01 This 61 yrs old Male presents to ER via Ambulatory with complaints of Possible Kidney ms3 Stone. 08:01 The patient complains of pain in the Left Flank. The pain does not radiate. Onset: The ms3 symptoms/episode began/occurred yesterday. Modifying factors: The symptoms are alleviated by nothing. the symptoms are aggravated by nothing. Associated signs and symptoms: The patient has no apparent associated signs or symptoms. Severity of pain: At its worst the pain was severe in the emergency department the pain has improved. Historical: - Allergies: 04:44 Erythromycin; lp1 - Home Meds: 04:44 metformin 1,000 mg Oral tab 1 tab 2 times per day [Active]; meloxicam oral [Active]; lp1 - PMHx: 04:44 HEART MUMUR; Kidney stones; lp1 - PSHx: 04:44 Appendectomy; R knee surgery; Tonsillectomy; lp1 - Immunization history:: Adult Immunizations up to date. - Social history:: Smoking status: Patient reports use of chewing tobacco. ROS: 08:01 Constitutional: Negative for fever, and chills. Neck: Negative for injury, pain, and ms3 swelling, Cardiovascular: Negative for chest pain, and palpitations. Respiratory: Negative for shortness of breath, cough, wheezing, and pleuritic chest pain, Abdomen/GI: Negative for abdominal pain, nausea, vomiting, diarrhea, and constipation, MS/Extremity: Negative for injury and deformity, Skin: Negative for injury, rash, and discoloration. 08:01 : Positive for urinary frequency, hematuria. 08:01 All other systems are negative. Exam: 08:01 Constitutional: This is a well developed, well nourished patient who is awake, alert, ms3 and in no acute distress. ENT: Nares patent. No nasal discharge, no septal abnormalities noted. Tympanic membranes are normal and external auditory canals are clear. Oropharynx with no redness, swelling, or masses, exudates, or evidence of obstruction, uvula midline. Mucous membranes moist. Neck: Trachea midline, no cervical lymphadenopathy. Supple, full range of motion without nuchal rigidity, or vertebral point tenderness. No Meningismus. Chest/axilla: Normal chest wall appearance and motion. Nontender with no deformity. Cardiovascular: Regular rate and rhythm with a normal S1 and S2. No gallops, murmurs, or rubs. Normal PMI, no JVD. No pulse deficits. Respiratory: Lungs have equal breath sounds bilaterally, clear to auscultation and percussion. No rales, rhonchi or wheezes noted. No increased work of breathing, no retractions or nasal flaring. Abdomen/GI: Soft, non-tender, with normal bowel sounds. No distension or tympany. No guarding or rebound. No evidence of tenderness throughout. Skin: Warm, dry with normal turgor. Normal color with no rashes, no lesions, and no evidence of cellulitis. Psych: Awake, alert, with orientation to person, place and time. Behavior, mood, and affect are within normal limits. Vital Signs: 04:41 BP 169 / 94; Pulse 80; Resp 18; Temp 98.8(O); Pulse Ox 97% on R/A; Weight 176.9 kg (R); lp1 Height 6 ft. 2 in. (187.96 cm); Pain 8/10; 05:15 BP 165 / 87; Pulse 72; Resp 17; Pulse Ox 96% on R/A; sm5 06:15 BP 167 / 105; Pulse 70; Resp 18; Pulse Ox 97% on R/A; sm5 07:15 BP 166 / 93; Pulse 69; Pulse Ox 96% on R/A; ap3 08:25 BP 144 / 92; Pulse 63; Pulse Ox 98% on R/A; ap3 04:41 Body Mass Index 50.07 (176.90 kg, 187.96 cm) lp1 MDM: 07:23 Patient medically screened. ms3 08:01 Differential diagnosis: nephrolithiasis, UTI. Data reviewed: vital signs, nurses notes, ms3 lab test result(s), radiologic studies. Counseling: I had a detailed discussion with the patient and/or guardian regarding: the historical points, exam findings, and any diagnostic results supporting the discharge/admit diagnosis, lab results, radiology results, the need for outpatient follow up, to return to the emergency department if symptoms worsen or persist or if there are any questions or concerns that arise at home. Special discussion: I discussed with the patient the need to follow-up with the PCP/specialist for the noted incidental finding on X-ray/CT scanning. 01/28 05:02 Order name: Urine Dipstick-Ancillary; Complete Time: 07:16 EDMS 01/28 05:46 Order name: CBC with Diff; Complete Time: 09:34 lp1 01/28 05:46 Order name: CMP; Complete Time: 09:34 lp1 01/28 05:46 Order name: Lipase; Complete Time: 09:34 lp1 01/28 06:49 Order name: CT Stone Protocol; Complete Time: 07:58 mh7 01/28 05:46 Order name: IV Saline Lock; Complete Time: 05:49 lp1 01/28 05:46 Order name: Labs collected and sent; Complete Time: 05:50 lp1 Administered Medications: 06:57 Drug: Zofran (Ondansetron) 4 mg Route: IVP; Site: right hand; ke1 10:00 Follow up: Response: No adverse reaction ap3 06:58 Drug: morphine 4 mg Route: IVP; Infused Over: 4 mins; Site: right hand; ke1 09:59 Follow up: Response: No adverse reaction ap3 06:59 Drug: NS 0.9% 1000 ml Route: IV; Rate: 1000 ml; Site: right hand; ke1 09:48 Drug: Tamsulosin Extended Release 24 hour Capsule 0.4 mg Route: PO; jh6 10:00 Follow up: Response: No adverse reaction ap3 10:01 Follow up: Response: No adverse reaction jh6 09:49 Drug: Ketorolac 15 mg Route: IVP; Site: right antecubital; jh6 10:00 Follow up: Response: No adverse reaction ap3 10:01 Follow up: Response: Pain is decreased jh6 Disposition Summary: 01/28/22 09:53 Discharge Ordered Location: Home ms3 Condition: Stable ms3 Diagnosis - Kidney stone ms3 - Unspecified hydronephrosis ms3 - Solitary pulmonary nodule ms3 Followup: ms3 - With: - When: 2 - 3 days - Reason: Re-evaluation by your physician Discharge Instructions: - Discharge Summary Sheet ms3 - Kidney Stones, Rkgq-do-Toid ms3 - Hydronephrosis ms3 - Pulmonary Nodule ms3 Forms: - Medication Reconciliation Form ms3 - Thank You Letter ms3 - Antibiotic Education ms3 - Prescription Opioid Use ms3 Prescriptions: - Tylenol-Codeine #3 300 mg-30 mg Oral - take 1 tablet by ORAL route every 6-8 hours; 12 tablet; Refills: 0, Product ms3 Selection Permitted Signatures: Dispatcher [employer] EDMS Carie Lott RN RN lp1 Asaf Cheek DO DO ms3 Mando Mensah MD MD 7 Radha Longoria RN RN jh6 Kenneth Ny RN RN ke1 Patrica Lewis RN ap3 Corrections: (The following items were deleted from the chart) 04:45 04:44 Allergies: arithromycin; lp1 lp1
[2022-01-28 10:20] VITALS: TEMP 98.8
[2022-01-28 10:25] VITALS: BP 144/92; O2SAT 98
== END 2022-01-28 10:11 | disposition home or self-care (01) ==
LOC: ER 04:04
DX: N20.0 Calculus of kidney (principal); N13.30 Unspecified hydronephrosis; R91.1 Solitary pulmonary nodule; Z87.442 Personal history of urinary calculi; F17.220 Nicotine dependence, chewing tobacco, uncomplicated; Z88.3 Allergy status to other anti-infective agents
CPT/HCPCS: 85025; 36415; 81003; 83690; 80053; 76377; 74176; 99284; J7030; J2405